=== PATIENT | female | born 1980 | race Caucasian/White ===

== ENCOUNTER 2018-07-05 15:52 | Observation (INO) | payer OTHER ==
[2018-07-05 16:20] VITALS: BP 127/63; PULSE 55
[2018-07-05 16:25] LABS: Appearance CLEAR (CLEAR); Bilirubin NEGATIVE (NEGATIVE); Blood NEGATIVE Ery/ul (0-5); Glucose NEGATIVE (NEGATIVE); Ketones NEGATIVE (NEGATIVE); Leukocyte Esterase NEGATIVE (NEGATIVE); Nitrite NEGATIVE (NEGATIVE); Protein,Urine Dip NEGATIVE (Negative); Specific Gravity 1.005 (1.005-1.025); Urobilinogen NORMAL mg/dL (0-1)
== END 2018-07-05 17:35 | disposition home or self-care (01) ==
LOC: UNDOADMOB 15:52 → OB 15:52 → UNDODISOB 17:35
PROVIDERS: ADMIT Family Medicine; ATTEND Family Medicine
DX: Z34.83 Encounter for supervision of other normal pregnancy, third trimester (principal)
CPT/HCPCS: 81002; G0378

== ENCOUNTER 2018-07-14 04:01 | Inpatient (IN) | payer OTHER ==
[2018-07-14] MEDS ORDERED: Lactated Ringers 2,000 ML IV ONE (04:25)
[2018-07-14] MEDS ORDERED: Lactated Ringers 1,000 ML IV ONE (05:19)
[2018-07-14] MEDS ORDERED: MOTRIN 400 MG PO PRN (05:20)
[2018-07-14] MEDS ORDERED: LANSINOH 40 GM TOP PRN (05:20)
[2018-07-14] MEDS ORDERED: TYLENOL EXTRA STRENGTH 500 MG PO PRN (05:20)
[2018-07-14] MEDS ORDERED: Anucort-HC SUPPOSITORY PR PRN (05:20)
[2018-07-14] MEDS ORDERED: CORTISONE 1% CREAM TP PRN (05:20)
[2018-07-14] MEDS ORDERED: Mylicon 80MG PO PRN (05:20)
[2018-07-14] MEDS ORDERED: Dermoplast Spray TP PRN (05:20)
[2018-07-14] MEDS ORDERED: Dulcolax 10 MG SUPP PR PRN (05:20)
[2018-07-14 05:26] LABS: INR 0.89 (0.8-3.0)
[2018-07-14 05:29] LABS: PTT 25.7 SECONDS (25.3-37.0)
[2018-07-14] MEDS ORDERED: Pepcid 20 MG VIAL IV SCH (05:30)
[2018-07-14] MEDS ORDERED: Reglan 10 MG/2 ML IV SCH (05:30)
[2018-07-14] MEDS ORDERED: Lactated Ringers 1,000 ML IV SCH (05:30)
[2018-07-14] MEDS ORDERED: CEFAZOLIN 2 GM-D5W BAG** 2 GM/50 ML ML IV SCH (05:30)
[2018-07-14 05:33] LABS: Hemoglobin 12.3 gm/dl (12.0-16.0); Mean Corpuscular Hemoglobin 31.6 pg (26-32); Mean Corpuscular Hgb Concent. 35.1 g/dl (32-36); Mean Platelet Volume 9.7 fl (6-9.5); Platelet Count 315 K/mm3 (150-450); Red Blood Count 3.89 M/mm3 (4.1-5.4); White Blood Count 10.9 K/mm3 (4.0-10.5)
[2018-07-14 05:39] LABS: ABO TYPING O; Antibody Screen NEGATIVE (NEGATIVE); RH TYPING POSITIVE
[2018-07-14 05:45] LABS: Appearance CLEAR (CLEAR); Bacteria FEW /HPF (NEGATIVE); Bilirubin NEGATIVE (NEGATIVE); Blood NEGATIVE Ery/ul (0-5); Epithelial Cells MODERATE /HPF (FEW); Glucose NEGATIVE (NEGATIVE); Ketones NEGATIVE (NEGATIVE); Leukocyte Esterase TRACE (NEGATIVE); Nitrite NEGATIVE (NEGATIVE); Protein,Urine Dip NEGATIVE (Negative); Urobilinogen NORMAL mg/dL (0-1)
[2018-07-14 05:58] LABS: Amphetamine,Urine NEGATIVE (NEGATIVE); Barbiturate,Urine NEGATIVE (NEGATIVE); Benzodiazepine,Urine NEGATIVE (NEGATIVE); Cocaine,Urine NEGATIVE (NEGATIVE); Methadone,Urine NEGATIVE (NEGATIVE); Opiate,Urine NEGATIVE (NEGATIVE); PCP,Urine NEGATIVE (NEGATIVE); THC,Urine POSITIVE (NEGATIVE)
[2018-07-14] MEDS ORDERED: MEDICATION INTERVENTION MC SCH (07:30)
[2018-07-14] MEDS ORDERED: DEMEROL 50 MG IV PRN (09:00)
[2018-07-14] MEDS ORDERED: MORPHINE SULFATE 2 MG INJ IV PRN (09:00)
[2018-07-14] MEDS ORDERED: Nubain 10 MG/ML IV PRN (09:00)
[2018-07-14] MEDS ORDERED: BENADRYL 50 MG/ML IV PRN (09:00)
[2018-07-14] MEDS ORDERED: Zofran 4 MG/2 ML VIAL IV PRN ×2 (09:00→10:08)
[2018-07-14] MEDS ORDERED: HOLD NARCOTIC ANALGESICS AND SEDATIVES X24 HR MC PRN (09:00)
[2018-07-14] MEDS ORDERED: Narcan 0.4 MG/ML IV PRN (09:00)
[2018-07-14] MEDS ORDERED: CLARITIN 10 MG PO PRN (09:00)
[2018-07-14] MEDS: FERREX 150 PO SCH (09:39)
[2018-07-14] MEDS: Colace 100 MG PO SCH ×2 (09:39→20:37)
[2018-07-14 10:26] LABS: Appearance CLEAR (CLEAR); Leukocyte Esterase NEGATIVE (NEGATIVE); Nitrite NEGATIVE (NEGATIVE); Specific Gravity 1.015 (1.005-1.025)
--- NOTE | 2018-07-14 10:26 | OP ---
SURGERY DATE/TIME: 07/14/2018 0718 PREOPERATIVE DIAGNOSES: 1) History of prior section. 2) Term intrauterine . POSTOPERATIVE DIAGNOSES: 1) History of prior section. 2) Term intrauterine . PROCEDURE: Repeat low transverse section. SURGEON: Adalberto Chu M.D. ORACLE PROGRAMMER: Delmy Hinton M.D. ESTIMATED BLOOD LOSS: 300 cc. IV FLUIDS: 1400 cc of crystalloid. URINE OUTPUT: 200 cc of clear straw-colored urine. ANESTHESIA: Spinal by Donal Agarwal CRNA. SPECIMENS: None. DESCRIPTION OF PROCEDURE: After informed written consent was obtained, the patient was taken to the operating room. She underwent spinal anesthesia and was prepped and draped in the usual sterile fashion. After adequate level of anesthesia assessed, a low transverse skin incision was made by knife and carried through the subcutaneous fat to the level of the fascia. The fascia was nicked on both sides of the midline extended in horizontal fashion using curved Tapia scissors. The superior free edge of the fascia was grasped with Valdemar clamps and the underlying rectus muscles were dissected free. The same was repeated inferiorly. The peritoneal cavity was opened and extended in horizontal fashion. Bladder blade was then inserted and a bladder was created and reflected over the lower uterine segment. A horizontal uterine incision was made by knife and carried down to the level of the amniotic membranes which were carefully artificially ruptured. A viable male with a strong cry immediately was delivered from the vertex presentation. He voided on the operative field. The cord was clamped and cut and he was handed off to the awaiting nursery team after the oropharynx and nares were bulb suctioned free of fluid. The placenta was manually removed and the uterus was exteriorized. The uterine cavity was sponge curetted with a lap sponge. Next, the uterine incision was closed with #1 chromic in a running locked fashion. Good closure and good hemostasis achieved. The posterior cul-de-sac was wiped free of blood and clot with a moist lap sponge. The uterus was returned to the peritoneal cavity. Lateral gutters were wiped free of blood and clot. The uterine incision was carefully inspected and noted to be well approximated and hemostatic. Next, the fascia was closed with 0 Vicryl in a running fashion with good closure and good hemostasis were achieved. The subcutaneous fat was irrigated with warm, sterile saline. The space closed with 3-0 Vicryl in a running fashion. The skin layer was closed with 4-0 undyed Vicryl in a running subcuticular fashion. Steri-Strips and occlusive dressing were placed over the incision. The patient was transferred to the recovery in good condition.
[2018-07-14 10:27] LABS: Bilirubin NEGATIVE (NEGATIVE); Blood NEGATIVE Ery/ul (0-5); Glucose NEGATIVE (NEGATIVE); Ketones MODERATE (NEGATIVE); Protein,Urine Dip NEGATIVE (Negative); Urobilinogen NORMAL mg/dL (0-1)
[2018-07-14] MEDS ORDERED: Astramorph-Pf 5 MG/10 ML IV ONE (10:45)
[2018-07-14] MEDS ORDERED: Phenergan 25 MG INJ IV PRN (10:53)
[2018-07-14] MEDS ORDERED: Transderm Scop 1.5MG Patch TOP ONE (10:54)
[2018-07-14] MEDS ORDERED: MARCAINE 0.5%-EPI 1:200,000 VL IJ ONE (12:41)
[2018-07-14] MEDS ORDERED: Ephedrine Sulfate 50 MG/ML IV ONE (12:41)
[2018-07-14] MEDS ORDERED: Marcaine Spinal Ampul IJ ONE (12:41)
[2018-07-14] MEDS ORDERED: Xylocaine-Mpf 2% 5 Ml Vial IJ ONE (12:41)
[2018-07-14] MEDS ORDERED: Zofran 4 MG/2 ML VIAL IV ONE (12:41)
[2018-07-14] MEDS ORDERED: Pitocin 10 UNITS/ML IV ONE (12:41)
[2018-07-14] MEDS: Dextrose 5%-Lr IV Solution 1000 ML 1,000 ML IV SCH ×2 (13:34→20:38)
[2018-07-15] MEDS: PERCOCET TABLET 5/325MG PO PRN ×2 (02:01→06:48)
[2018-07-15 05:30] LABS: BASOPHIL % 0.2 % (0.0-0.4); Basophil (Absolute #) 0.02 (0-0.4); Eosinophil % 0.8 % (0.00-5.0); Granulocyte Absolute (ANC) 9.42 (1.4-6.9); Granulocytes % 72.8 % (36.0-66.0); Hematocrit 30.3 % (35-47); Hemoglobin 10.3 gm/dl (12.0-16.0); Lymphocyte (Absolute #) 2.35 (1.0-4.6); Lymphocytes % 18.2 % (24.0-44.0); Mean Cell Volume 91.8 fl (78-100); Mean Corpuscular Hemoglobin 31.2 pg (26-32); Monocyte (Absolute #) 1.04 (0.0-1.3); Platelet Count 267 K/mm3 (150-450); Red Cell Distribution Width 13.1 % (11.5-14.0); White Blood Count 12.9 K/mm3 (4.0-10.5)
[2018-07-15] MEDS ORDERED: Phenergan 25 MG INJ IM PRN (09:00)
[2018-07-15] MEDS ORDERED: DEMEROL 75 MG IM PRN (09:00)
[2018-07-15] MEDS: Colace 100 MG PO SCH ×2 (11:53→19:50)
[2018-07-15] MEDS: FERREX 150 PO SCH (11:53)
[2018-07-15] MEDS: NORCO 5/325 MG PO PRN ×3 (11:53→22:20)
[2018-07-16 02:58] VITALS: O2SAT 98
[2018-07-16] MEDS: NORCO 5/325 MG PO PRN (04:20)
--- NOTE | 2018-07-16 10:17 | XRAY ---
Exam: Abdomen complete (3 images) from 07/16/2018. Comparison: None. Indication: Consider ileus. Findings: An upright film of the abdomen and 2 supine images of the abdomen were obtained. I note some focally dilated bowel just to the left of the lower lumbar spine. This measures a maximum of about 5 cm diameter. If this represents small bowel, it is definitely dilated. Distal to this, I see some nondilated small bowel loops overlying the right lower right abdomen as well as gas and stool throughout much of the colon to the distal descending colon. A small amount of gas and stool are seen within distal rectosigmoid colon. An air-fluid levels seen within the gastric fundus on the upright image. The stomach is nondistended. No free intraperitoneal air is seen underneath the hemidiaphragms. There is a round, fog-like artifactual density overlying the medial right lung base on the upright image. No hepatosplenomegaly is seen. No suspicious intra-abdominal calcifications are noted. The bones reveal a 2.1 cm in diameter sclerotic density overlying the lower aspect of the left sacroiliac joint on the iliac side. This might represent a bone island, although precise etiology is uncertain. There is also a 5 mm calcification adjacent to the superior lateral edge of the right acetabulum which may represent an accessory bone (os acetabuli). The remainder the bones appears intact. Impression: 1. Nonspecific bowel gas pattern. There is focal prominence of a bowel loop seen just above the left sacroiliac joint and to the left of midline at L4-L5. If this represents a portion of the sigmoid colon, this would be unremarkable. However, if this represents small bowel, then it is dilated. I do not see significant bowel distention proximal to this. Also, some nondilated small bowel is seen within the lower right hemiabdomen. Correlate clinically regarding the need for further investigation with a CT of the abdomen and pelvis with IV contrast. 2. Moderate colonic stool retention is seen within the cecum, ascending colon, transverse colon, and descending colon. 3. No free intraperitoneal air is seen. 4. 2.1 cm sclerotic density overlying the iliac side of the inferior portion of left sacroiliac joint. This is fairly well demarcated. This might represent a bone island.
[2018-07-16] MEDS: Colace 100 MG PO SCH (10:25)
[2018-07-16] MEDS: FERREX 150 PO SCH (10:25)
[2018-07-16] MEDS ORDERED: Astramorph-Pf 5 MG/10 ML IV ONE (10:39)
[2018-07-16 15:44] VITALS: BP 149/77; PULSE 76
--- NOTE | 2018-07-16 16:06 | PCM.DS ---
Discharge Summary Date of Admission: 07/14/18 04:01 Admitting Physician: ACOSTA SANCHEZ Consults: Consults on Case 07/14/18 05:19 Notify Anesthesia Provider ROUTINE Primary Care Provider: ACOSTA SANCHEZ Allergies Allergies ketorolac tromethamine [From Toradol] Allergy (Mild, Verified 08/14/14 08:48) [facility] Summary - Hospital Course Hospital Course: Pt is 38 yo who delivered viable male via repeat c/section. She has done well postoperatively aside from some abdominal pain and bloating this morning. She had an abd xray which was not diagnostic. She passed gas and has been feeling much better and would like to go home. - Vitals & Intake/Output Vital Signs: Vital Signs Temperature 98.7 F 07/16/18 14:00 Pulse Rate 76 07/16/18 14:00 Respiratory Rate 18 07/16/18 14:00 Blood Pressure 149/77 07/16/18 14:00 O2 Sat by Pulse Oximetry 98 07/16/18 02:00 Intake & Output: Intake & Output 07/14/18 07/15/18 07/16/18 07/17/18 11:59 11:59 11:59 11:59 Intake Total 354 4961 Output Total 1900 Balance 354 3061 Weight 102.058 kg - Lab Result Diagrams: 07/15/18 05:22 Micro Results-Entire Visit: Microbiology 07/14/18 07:32 Urine Culture - Final Urine, Catheterized NO GROWTH - Radiology Exams Ordered Rad Exams-Entire Visit: Radiology Procedures Category Date Time Status ABDOMEN 2 VIEW Stat Exams 07/16/18 09:22 Completed - Procedures and Test Procedures and Tests throughout Hospitalization: Therapy Orders & Screens 07/14/18 10:20 Standby Routine Comment: Diagnosis: Repeat Section Discharge Exam General Appearance: mild distress (cries initially during interview), other ( exam done this morning) Neurologic Exam: alert, oriented x 3, cooperative Skin Exam: normal color, warm, dry, No rash Respiratory Exam: normal breath sounds, lungs clear, No crackles/rales, No rhonchi, No wheezing Cardiovascular Exam: regular rate/rhythm, normal heart sounds, No murmur Gastrointestinal/Abdomen Exam: soft, tenderness (generalized, mild), other ( fundus firm under umbilicus. wound c/d/ i, no erythema/exudate), No normal bowel sounds (hypoactive), No distention, No mass, No guarding, No rebound Extremity Exam: No pedal edema, No swelling Back Exam: normal inspection, No rash Final Diagnosis/Problem List - Final Discharge Diagnosis/Problem (1) delivery delivered Current Visit: Yes Status: Acute Assessment & Plan: doing well. home today. (2) Anemia Current Visit: Yes Status: Acute Assessment & Plan: mild; heg 10.3. on Fe for 1 mo. - Discharge Disposition: Home, Self-Care Condition: Good Prescriptions: New Docusate Sodium [Colace] 100 mg PO BID PRN #60 capsule PRN Reason: Constipation Ferrous Sulfate 325 mg [Feosol 325 mg] 325 mg PO DAILY #30 tablet Ibuprofen 800 mg PO TID PRN #35 tablet PRN Reason: Pain Hydrocodone Bit/Acetaminophen [[place] 5-325 Tablet] 1 each PO Q4H PRN #30 tablet MDD 6 PRN Reason: Severe Pain Continue Vits W-Ca,Fe,FA(<1Mg) [] 1 each PO LUNCH Follow up with: ACOSTA SANCHEZ [Primary Care Provider] - 1 Week
== END 2018-07-16 16:45 | disposition home or self-care (01) | DRG 766 ==
LOC: OB 04:01
PROVIDERS: ADMIT Family Medicine; ATTEND Family Medicine
PROC: 10D00Z1 Extraction of Products of Conception, Low, Open Approach (ICD-10-PCS; principal; 2018-07-14)
DX: O34.211 Maternal care for low transverse scar from previous cesarean delivery (principal); Z37.0 Single live birth; Z3A.39 39 weeks gestation of pregnancy; D64.9 Anemia, unspecified
CPT/HCPCS: 36415; 62322; 64488; 74021; 76937; 76942; 80307; 81001; 81003; 85025; 85027; 85610; 85730; 86850; 86900; 86901; 87086; 94799; J0690; J2274; J2405; J2550; J2590; L0625; A9270-GY

== ENCOUNTER 2019-12-27 07:37 | Day surgery (SDC) | payer OTHER ==
[~2019-12-27 07:37] MED LIST: CEFAZOLIN 2 GM-D5W BAG** 2 GM/50 ML ML IV SCH; Lactated Ringers 1,000 ML IV SCH
[2019-12-27] MEDS ORDERED: Decadron 4 MG INJ ONE (09:50)
[2019-12-27] MEDS ORDERED: SUBLIMAZE 100 MCG/2 ML ONE ×2 (09:50→10:05)
[2019-12-27] MEDS ORDERED: Zofran 4 MG/2 ML VIAL ONE (09:50)
[2019-12-27] MEDS ORDERED: Versed 2 MG/2 ML Injection ONE (09:50)
[2019-12-27] MEDS ORDERED: DIPRIVAN 200 MG/20 ML IV ONE (09:50)
[2019-12-27] MEDS ORDERED: Xylocaine-Mpf 2% 5 Ml Vial ONE (09:51)
[2019-12-27 11:54] VITALS: O2SAT 100
[2019-12-27 11:56] VITALS: BP 143/98; PULSE 74
--- NOTE | 2019-12-28 08:37 | OP ---
SURGERY DATE/TIME: 12/27/2019 0958 PREOPERATIVE DIAGNOSIS: Menorrhagia. POSTOPERATIVE DIAGNOSIS: Menorrhagia. PROCEDURE: Hysteroscopy D&C with Novasure ablation. SURGEON: Lawrence Alba D.O. RUBBER FACTORY WORKER: Yves Martinez surgical manager. ANESTHESIA: General. ESTIMATED BLOOD LOSS: Minimal. COMPLICATIONS: None. INDICATIONS: The risks, benefits, indications and alternatives of the procedure were reviewed with the patient prior to the procedure. The patient understood the risk of infection, bleeding, bowel injury, bladder injury, ureteral injury, uterine perforation, pelvic infection, thromboembolic disorder associated with the surgery however desires to have this surgery as a possible need to alleviate her current medical condition. DESCRIPTION OF PROCEDURE AND FINDINGS: At this point the patient is taken to the operating room, given general sedation, placed in dorsal lithotomy position. Prepped and draped in the usual sterile fashion. A weighted speculum is then placed in the patient's vagina and the anterior lip of the cervix is grasped with a single tooth tenaculum. Endocervical dilators were advanced through the endocervical canal as a means to dilate the cervix and the uterus sounded to approximately 9 cm. From this point a 5 mm hysteroscope was then placed into the endocervical canal where visualization revealed no gross abnormalities within the uterine lining. From this point the hysteroscope was then removed and the curette was then placed into the fundus of the uterus and curettage performed in all quadrants of the uterus retrieving a mild to moderate amount of endometrial tissue. From this point hemostasis is obtained. From this point the Novasure was then measured at 6.0 cm in length and was inserted into the fundus of the uterus, retracted approximately 1 cm and was engaged with a width of 4 cm. After engagement the machine was turned on for approximately 90 seconds of ablative time. After ablation the Novasure was then disengaged and was removed from the uterine cavity without complication. From this point, the patient was then taken out of the dorsal lithotomy position, was taken out of anesthesia and was then taken to the recovery room in stable condition. All instruments and laps were accounted for x2.
== END 2019-12-27 11:50 | disposition home or self-care (01) ==
LOC: SDC 07:37
PROVIDERS: ATTEND Obstetrics & Gynecology
DX: N92.0 Excessive and frequent menstruation with regular cycle (principal)
CPT/HCPCS: 84703; 88305; J0690; J1100; J2250; J2405; J2704; J3010

== ENCOUNTER 2020-06-15 00:06 | Emergency (ER) | payer OTHER ==
[2020-06-15 00:39] LABS: Absolute Neutrophil Ct (ANC) 4.69 (1.4-6.9); BASOPHIL % 0.6 % (0.0-0.4); Basophil (Absolute #) 0.05 (0-0.4); Eosinophil % 3.8 % (0.00-5.0); Eosinophil (Absolute #) 0.34 (0-0.5); Hematocrit 42.4 % (35-47); Hemoglobin 14.6 gm/dl (12.0-16.0); Lymphocyte (Absolute #) 3.02 (1.0-4.6); Mean Cell Volume 89.3 fl (78-100); Mean Corpuscular Hemoglobin 30.7 pg (26-32); Mean Corpuscular Hgb Concent. 34.4 g/dl (32-36); Monocyte (Absolute #) 0.78 (0.0-1.3); Monocytes % 8.8 % (0.0-12.0); Neutrophil % 52.8 % (36.0-66.0); Platelet Count 285 K/mm3 (150-450); Red Blood Count 4.75 M/mm3 (4.1-5.4); Red Cell Distribution Width 12.6 % (11.5-14.0); White Blood Count 8.9 K/mm3 (4.0-10.5)
--- NOTE | 2020-06-15 00:59 | ERPHSYRPT ---
- History of Present Illness Time Seen by Provider: 06/15/20 00:15 Historian: patient Exam Limitations: no limitations Patient Subjective Stated Complaint: "I have pain in my chest and it hurts so bad that I can't breath." Triage Nursing Assessment: Pt presented alert et oriented x3 answering questions appropriately. Pt reported acute onset chest pain that radiates to her lower back. Pt reported shortness of breath secondary to the pain. Pt also reported nausea and vomiting. Pt reported symptom original onset in november. pt reported symptoms occur multiple times per month and always at night. Pt reported symptoms are constant after they begin. Pain described as sharp and radiating to the back. Pain reported to alleviate following vomiting. No aggrevating factors. Pt reported severity as severe. Pupils 3mm reactive. Neck supple non-tender. Oral mucosa pink/moist. Symmetrical chest expansion. Heart tones regular/clear S1 and S2. Lungs clear witha adequate airflow. Abdomen obese non-distended non- tender. Bowel sounds present in all quadrants. No noted dependent edema. Physician History: Patient is a 40-year-old female presents to our ED with complaints of chest pain shortness of breath nausea vomiting. Patient has been experiencing these symptoms intermittently for the past 6 months. Symptoms usually occur at night. Pain described as a sharp sensation that tends to radiate towards her back. Patient states vomiting improves her symptoms. Symptoms are to severe in intensity when they occur. Patient believes lying flat causes her symptomology. Pain tends to improve after vomiting. No fever. No trauma. No abdominal pain. Patient is otherwise healthy. She voices no other complaints concerns at this time. Timing/Duration: today Activities at Onset: sleep Quality: sharpness Location: substernal Chest Pain Radiation: back Severity of Pain-Max: severe Severity of Pain-Current: moderate Modifying Factors: Improves With: other (vomiting) Associated Symptoms: nausea, vomiting, shortness of breath, back pain Nitro Today/Relief: no nitro taken today Aspirin Treatment Today: no aspirin today Allergies/Adverse Reactions: ketorolac tromethamine [From Toradol] Allergy (Mild, Verified 06/15/20 00:20) dizziness Home Medications: Cholecalciferol (Vitamin D3) [Vitamin D3] 2,000 unit PO DAILY 12/27/19 [History] Cetirizine HCl 1 tab PO DAILY 06/15/20 [History] Tacrolimus 1 dose .ROUTE DAILY 06/15/20 [History] Hx Tetanus, Diphtheria Vaccination/Date Given: No Hx Influenza Vaccination/Date Given: No Hx Pneumococcal Vaccination/Date Given: No Travel Risk - International Travel Have you traveled outside of the country in past 3 weeks: No - Coronavirus Screening Are you exhibiting any of the following symptoms?: No Close contact with a COVID-19 positive Pt in past 14-21 Days: No - Review of Systems Constitutional: No Symptoms, No Fever, No Chills Eyes: No Symptoms Ears, Nose, & Throat: No Symptoms Respiratory: No Symptoms, No Cough, No Dyspnea Cardiac: No Symptoms, No Chest Pain, No Edema, No Syncope Abdominal/Gastrointestinal: No Symptoms, No Abdominal Pain, No Nausea, No Vomiti ng, No Diarrhea Genitourinary Symptoms: No Symptoms, No Dysuria Musculoskeletal: No Symptoms, No Back Pain, No Neck Pain Skin: No Symptoms, No Rash Neurological: No Symptoms, No Dizziness, No Focal Weakness, No Sensory Changes Psychological: No Symptoms Endocrine: No Symptoms Hematologic/Lymphatic: No Symptoms Immunological/Allergic: No Symptoms All Other Systems: Reviewed and Negative - Past Medical History Pertinent Past Medical History: No Neurological History: No Pertinent History ENT History: No Pertinent History Cardiac History: No Pertinent History Respiratory History: Asthma Endocrine Medical History: No Pertinent History Musculoskeletal History: No Pertinent History GI Medical History: No Pertinent History History: No Pertinent History Psycho-Social History: No Pertinent History Female Reproductive Disorders: No Pertinent History - Past Surgical History Past Surgical History: Yes Neuro Surgical History: No Pertinent History Cardiac: No Pertinent History Respiratory: No Pertinent History Gastrointestinal: No Pertinent History Genitourinary: No Pertinent History Musculoskeletal: Orthopedic Surgery Female Surgical History: Section Other Surgical History: CARPAL TUNNEL right hand - Social History Smoking Status: Former smoker How long have you smoked: 5 yrs Exposure to second hand smoke: Yes Drug Use: marijuana Patient Lives Alone: No - Female History Hx Now: No - Nursing Vital Signs Nursing Vital Signs: Initial Vital Signs Temperature 96.3 F 06/15/20 00:07 Pulse Rate 98 H 06/15/20 00:07 Respiratory Rate 18 06/15/20 00:07 Blood Pressure 144/100 06/15/20 00:07 O2 Sat by Pulse Oximetry 97 06/15/20 00:07 Pain Scale Pain Intensity 2 - Physical Exam General Appearance: no apparent distress, alert Eye Exam: PERRL/EOMI, eyes nml inspection Ears, Nose, Throat Exam: normal ENT inspection, TMs normal, moist mucous membranes Neck Exam: normal inspection, non-tender, supple, full range of motion Respiratory Exam: normal breath sounds, lungs clear, airway intact, No chest tenderness, No respiratory distress, No diminished breath sounds, No accessory muscle use, No crackles/rales, No wheezing Cardiovascular Exam: regular rate/rhythm, normal heart sounds Gastrointestinal/Abdomen Exam: soft, No tenderness, No mass Back Exam: normal inspection, No CVA tenderness, No vertebral tenderness Extremity Exam: normal inspection, normal range of motion Neurologic Exam: alert, oriented x 3, cooperative, normal mood/affect, sensation nml, No motor deficits Skin Exam: normal color, warm, dry Lymphatic Exam: No adenopathy SpO2 Interpretation: normal SpO2: 97 O2 Delivery: Room Air - Course Nursing assessment & vital signs reviewed: Yes EKG Interpreted by Me: RATE (94), Sinus Rhythm, NORMAL AXIS, NORMAL INTERVALS - Radiology Exams Chest X-ray Interpretation: Interpreted by me (No infiltrate no consolidation no effusion. Normal cardiac silhouette. Normal bony thorax. No pneumothorax. Nonremarkable chest x-ray.) Ordered Tests: Active Orders 24 hr Category Date Time Status Road Freight Conductor STAT Care 06/15/20 00:17 Active EKG-ER Only STAT Care 06/15/20 00:17 Active IV Insertion STAT Care 06/15/20 00:17 Active Pulse Oximetry (ED) STAT Care 06/15/20 00:17 Active CHEST 1 VIEW (PORTABLE) Stat Exams 06/15/20 00:17 Taken CBC W DIFF Stat Lab 06/15/20 00:36 Completed CMP Stat Lab 06/15/20 00:36 Completed D-DIMER QUANTITATIVE Stat Lab 06/15/20 00:36 Completed HCG,QUALITATIVE URINE Stat Lab 06/15/20 01:54 Completed NT PRO BNP Stat Lab 06/15/20 00:36 Completed TROPONIN Q3H Lab 06/15/20 00:36 Completed TROPONIN Q3H Lab 06/15/20 02:28 Completed TROPONIN Q3H Lab 06/15/20 06:30 Ordered TROPONIN Q3H Lab 06/15/20 09:30 Ordered TROPONIN Q3H Lab 06/15/20 12:30 Ordered UA W/RFX UR CULTURE Stat Lab 06/15/20 01:54 Completed Urine Triage Profile Stat Lab 06/15/20 01:54 Completed Lab/Rad Data: Laboratory Result Diagrams 06/15/20 00:36 06/15/20 00:36 Laboratory Results 06/15/20 06/15/20 06/15/20 Range/Units 02:28 01:54 01:54 WBC (4.0-10.5) K/mm3 RBC (4.1-5.4) M/mm3 Hgb (12.0-16.0) gm/dl Hct (35-47) % MCV (78-100) fl MCH (26-32) pg MCHC (32-36) g/dl RDW (11.5-14.0) % Plt Count (150-450) K/mm3 MPV (7.5-11.0) fl Gran % (36.0-66.0) % Eos # (Auto) (0-0.5) Absolute Lymphs (auto) (1.0-4.6) Absolute Monos (auto) (0.0-1.3) Lymphocytes % (24.0-44.0) % Monocytes % (0.0-12.0) % Eosinophils % (0.00-5.0) % Basophils % (0.0-0.4) % Absolute Granulocytes (1.4-6.9) Basophils # (0-0.4) D-Dimer (215-500) ng/mL Sodium (137-145) mmol/L Potassium (3.5-5.1) mmol/L Chloride (98-107) mmol/L Carbon Dioxide (22-30) mmol/L Anion Gap (5-15) MEQ/L BUN (7-17) mg/dL Creatinine (0.52-1.04) mg/dL Estimated GFR ML/MIN Glucose (74-106) mg/dL Calcium (8.4-10.2) mg/dL Total Bilirubin (0.2-1.3) mg/dL AST (14-36) U/L ALT (0-35) U/L Alkaline Phosphatase (38-126) U/L Troponin I < 0.012 (0.000-0.034) ng/mL NT-Pro-B Natriuret Pep (0-450) pg/mL Serum Total Protein (6.3-8.2) g/dL Albumin (3.5-5.0) g/dL Urine Color (YELLOW) Urine Appearance (CLEAR) Urine pH (5-6) Ur Specific Zap (1.005-1.025) Urine Protein (Negative) Urine Ketones (NEGATIVE) Urine Blood (0-5) Hayes/ul Urine Nitrite (NEGATIVE) Urine Bilirubin (NEGATIVE) Urine Urobilinogen (0-1) mg/dL Ur Leukocyte Esterase (NEGATIVE) Urine WBC (Auto) (0-5) /HPF Urine RBC (Auto) (0-2) /HPF U Epithel Cells (Auto) (FEW) /HPF Urine Bacteria (Auto) (NEGATIVE) /HPF Amorphous Crystals (NEGATIVE) /HPF Urine Mucus (Auto) (NEGATIVE) /HPF Urine Culture Reflexed (NO) Urine Glucose (NEGATIVE) mg/dL Urine HCG, Qual NEGATIVE (Negative) Urine Opiates Level NEGATIVE (NEGATIVE) Ur Methadone NEGATIVE (NEGATIVE) Urine Barbiturates NEGATIVE (NEGATIVE) Ur Phencyclidine (PCP) NEGATIVE (NEGATIVE) Urine Amphetamine NEGATIVE (NEGATIVE) U Benzodiazepine Level NEGATIVE (NEGATIVE) Urine Cocaine NEGATIVE (NEGATIVE) Urine Marijuana (THC) POSITIVE (NEGATIVE) 06/15/20 06/15/20 06/15/20 Range/Units 01:54 00:36 00:36 WBC (4.0-10.5) K/mm3 RBC (4.1-5.4) M/mm3 Hgb (12.0-16.0) gm/dl Hct (35-47) % MCV (78-100) fl MCH (26-32) pg MCHC (32-36) g/dl RDW (11.5-14.0) % Plt Count (150-450) K/mm3 MPV (7.5-11.0) fl Gran % (36.0-66.0) % Eos # (Auto) (0-0.5) Absolute Lymphs (auto) (1.0-4.6) Absolute Monos (auto) (0.0-1.3) Lymphocytes % (24.0-44.0) % Monocytes % (0.0-12.0) % Eosinophils % (0.00-5.0) % Basophils % (0.0-0.4) % Absolute Granulocytes (1.4-6.9) Basophils # (0-0.4) D-Dimer 279 (215-500) ng/mL Sodium (137-145) mmol/L Potassium (3.5-5.1) mmol/L Chloride (98-107) mmol/L Carbon Dioxide (22-30) mmol/L Anion Gap (5-15) MEQ/L BUN (7-17) mg/dL Creatinine (0.52-1.04) mg/dL Estimated GFR ML/MIN Glucose (74-106) mg/dL Calcium (8.4-10.2) mg/dL Total Bilirubin (0.2-1.3) mg/dL AST (14-36) U/L ALT (0-35) U/L Alkaline Phosphatase (38-126) U/L Troponin I < 0.012 (0.000-0.034) ng/mL NT-Pro-B Natriuret Pep (0-450) pg/mL Serum Total Protein (6.3-8.2) g/dL Albumin (3.5-5.0) g/dL Urine Color YELLOW (YELLOW) Urine Appearance SLIGHTLY CLOUDY (CLEAR) Urine pH 7.0 (5-6) Ur Specific Zap 1.018 (1.005-1.025) Urine Protein NEGATIVE (Negative) Urine Ketones NEGATIVE (NEGATIVE) Urine Blood NEGATIVE (0-5) Hayes/ul Urine Nitrite NEGATIVE (NEGATIVE) Urine Bilirubin NEGATIVE (NEGATIVE) Urine Urobilinogen NEGATIVE (0-1) mg/dL Ur Leukocyte Esterase NEGATIVE (NEGATIVE) Urine WBC (Auto) NONE (0-5) /HPF Urine RBC (Auto) 0-2 (0-2) /HPF U Epithel Cells (Auto) RARE (FEW) /HPF Urine Bacteria (Auto) NONE (NEGATIVE) /HPF Amorphous Crystals FEW (NEGATIVE) /HPF Urine Mucus (Auto) SLIGHT (NEGATIVE) /HPF Urine Culture Reflexed NO (NO) Urine Glucose NEGATIVE (NEGATIVE) mg/dL Urine HCG, Qual (Negative) Urine Opiates Level (NEGATIVE) Ur Methadone (NEGATIVE) Urine Barbiturates (NEGATIVE) Ur Phencyclidine (PCP) (NEGATIVE) Urine Amphetamine (NEGATIVE) U Benzodiazepine Level (NEGATIVE) Urine Cocaine (NEGATIVE) Urine Marijuana (THC) (NEGATIVE) 06/15/20 06/15/20 Range/Units 00:36 00:36 WBC 8.9 (4.0-10.5) K/mm3 RBC 4.75 (4.1-5.4) M/mm3 Hgb 14.6 (12.0-16.0) gm/dl Hct 42.4 (35-47) % MCV 89.3 (78-100) fl MCH 30.7 (26-32) pg MCHC 34.4 (32-36) g/dl RDW 12.6 (11.5-14.0) % Plt Count 285 (150-450) K/mm3 MPV 9.0 (7.5-11.0) fl Gran % 52.8 (36.0-66.0) % Eos # (Auto) 0.34 (0-0.5) Absolute Lymphs (auto) 3.02 (1.0-4.6) Absolute Monos (auto) 0.78 (0.0-1.3) Lymphocytes % 34.0 (24.0-44.0) % Monocytes % 8.8 (0.0-12.0) % Eosinophils % 3.8 (0.00-5.0) % Basophils % 0.6 (0.0-0.4) % Absolute Granulocytes 4.69 (1.4-6.9) Basophils # 0.05 (0-0.4) D-Dimer (215-500) ng/mL Sodium 137 (137-145) mmol/L Potassium 3.6 (3.5-5.1) mmol/L Chloride 103 (98-107) mmol/L Carbon Dioxide 25 (22-30) mmol/L Anion Gap 12.6 (5-15) MEQ/L BUN 15 (7-17) mg/dL Creatinine 0.87 (0.52-1.04) mg/dL Estimated GFR > 60.0 ML/MIN Glucose 123 H (74-106) mg/dL Calcium 9.9 (8.4-10.2) mg/dL Total Bilirubin 0.40 (0.2-1.3) mg/dL AST 32 (14-36) U/L ALT 39 H (0-35) U/L Alkaline Phosphatase 79 (38-126) U/L Troponin I (0.000-0.034) ng/mL NT-Pro-B Natriuret Pep 29.8 (0-450) pg/mL Serum Total Protein 7.6 (6.3-8.2) g/dL Albumin 4.6 (3.5-5.0) g/dL Urine Color (YELLOW) Urine Appearance (CLEAR) Urine pH (5-6) Ur Specific Zap (1.005-1.025) Urine Protein (Negative) Urine Ketones (NEGATIVE) Urine Blood (0-5) Hayes/ul Urine Nitrite (NEGATIVE) Urine Bilirubin (NEGATIVE) Urine Urobilinogen (0-1) mg/dL Ur Leukocyte Esterase (NEGATIVE) Urine WBC (Auto) (0-5) /HPF Urine RBC (Auto) (0-2) /HPF U Epithel Cells (Auto) (FEW) /HPF Urine Bacteria (Auto) (NEGATIVE) /HPF Amorphous Crystals (NEGATIVE) /HPF Urine Mucus (Auto) (NEGATIVE) /HPF Urine Culture Reflexed (NO) Urine Glucose (NEGATIVE) mg/dL Urine HCG, Qual (Negative) Urine Opiates Level (NEGATIVE) Ur Methadone (NEGATIVE) Urine Barbiturates (NEGATIVE) Ur Phencyclidine (PCP) (NEGATIVE) Urine Amphetamine (NEGATIVE) U Benzodiazepine Level (NEGATIVE) Urine Cocaine (NEGATIVE) Urine Marijuana (THC) (NEGATIVE) - Progress Progress: improved Air Movement: good Progress Note: 06/15/20 03:03 Patient reassessed. She is well. Patient is pain-free. Work-up essentially negative. In light of the pattern of patient's pain it appears that patient's pain may be stemming from GERD. Patient advised to follow-up with her primary care physician possible referral to GI for further evaluation and treatment. Patient voiced no other complaints at this time. She agrees to follow-up with her primary care doctor within 48 hours for reevaluation. Blood Culture(s) Obtained: No Antibiotics given: No Counseled pt/family regarding: lab results, diagnosis, need for follow-up, rad results - Departure Departure Disposition: Home Clinical Impression: Chest pain, GERD (gastroesophageal reflux disease) Condition: Stable Critical Care Time: No Referrals: ACOSTA SANCHEZ [Primary Care Provider] - Additional Instructions: Discharge/Care Plan GUS NAVARROHER ECHEVARRIA was seen on 06/15/20 in the Emergency Room. The patient was counseled regarding Diagnosis,Lab results, Imaging studies, need for follow up and when to return to the Emergency Room. Prescriptions given: Discharge Note I have spoken with the patient and/or caregivers. I have explained the patient's condition, diagnosis and treatment plan based on the information available to me at this time. I have answered the patient's and/or caregiver's questions and addressed any concerns. The patient and/or caregivers have as good understanding of the patient's diagnosis, condition and treatment plan as can be expected at this point. The vital signs have been stable. The patient's condition is stable and appropriate for discharge from the emergency department. The patient will pursue further outpatient evaluation with the primary care physician or other designated or consulting physician as outlined in the discharge instructions. The patient and/or caregivers are agreeable to this plan of care and follow-up instructions have been explained in detail. The patient and/or caregivers have received these instruction. The patient/and or caregivers are aware that any significant change in condition or worsening of symptoms should prompt an immediate return to this or the closest emergency department or call 911.
[2020-06-15 01:01] LABS: ALBUMIN 4.6 g/dL (3.5-5.0); ALKALINE PHOSPHATASE 79 U/L (38-126); ANION GAP 12.6 MEQ/L (5-15); BLOOD UREA NITROGEN 15 mg/dL (7-17); CHLORIDE 103 mmol/L (98-107); Calcium 9.9 mg/dL (8.4-10.2); Carbon Dioxide 25 mmol/L (22-30); Creatinine 1 0.87 mg/dL (0.52-1.04); EST GLOMERULAR FILTRATION RATE > 60.0 ML/MIN; Glucose 123 mg/dL (74-106); NT PRO BNP 29.8 pg/mL (0-450); Potassium 3.6 mmol/L (3.5-5.1); SGOT/AST 32 U/L (14-36); SGPT/ALT 39 U/L (0-35); SODIUM 137 mmol/L (137-145); Total Protein 7.6 g/dL (6.3-8.2)
[2020-06-15 01:59] LABS: Amourphous Crystal FEW /HPF (NEGATIVE); Appearance SLIGHTLY CLOUDY (CLEAR); Bilirubin NEGATIVE (NEGATIVE); Blood NEGATIVE Ery/ul (0-5); Epithelial Cells RARE /HPF (FEW); Glucose NEGATIVE (NEGATIVE); Ketones NEGATIVE (NEGATIVE); Leukocyte Esterase NEGATIVE (NEGATIVE); Mucus SLIGHT /HPF (NEGATIVE); Nitrite NEGATIVE (NEGATIVE); Protein,Urine Dip NEGATIVE (Negative); RBC 0-2 /HPF (0-2); Specific Gravity 1.018 (1.005-1.025); Urobilinogen NEGATIVE mg/dL (0-1)
[2020-06-15 02:04] VITALS: O2SAT 97
[2020-06-15 02:12] LABS: Amphetamine,Urine NEGATIVE (NEGATIVE); Barbiturate,Urine NEGATIVE (NEGATIVE); Benzodiazepine,Urine NEGATIVE (NEGATIVE); Cocaine,Urine NEGATIVE (NEGATIVE); Methadone,Urine NEGATIVE (NEGATIVE); Opiate,Urine NEGATIVE (NEGATIVE); PCP,Urine NEGATIVE (NEGATIVE); THC,Urine POSITIVE (NEGATIVE)
[2020-06-15 03:16] VITALS: BP 125/71; PULSE 73
--- NOTE | 2020-06-15 09:40 | XRAY ---
Indication: Chest pain and vomiting. Comparison: None Portable chest demonstrates normal heart, lungs, and bony thorax with a few incidental right lung calcified granulomas.
== END 2020-06-15 03:16 | disposition home or self-care (01) ==
LOC: ED 00:06
DX: R07.9 Chest pain, unspecified (principal)
CPT/HCPCS: 36000; 36415; 71045; 80053; 80307; 81001; 83880; 84484; 84703; 85025; 85379; 93005; 93041; 94760; 99284

== ENCOUNTER 2020-07-12 18:14 | Emergency (ER) | payer OTHER ==
[2020-07-12] MEDS ORDERED: Augmentin 875-125 Tablet PO ONE (18:51)
[2020-07-12] MEDS ORDERED: ANTIVERT 25 MG PO ONE (18:51)
[2020-07-12] MEDS ORDERED: Augmentin 875-125 Tablet ONE (18:55)
[2020-07-12] MEDS ORDERED: ANTIVERT 25 MG ONE (18:55)
--- NOTE | 2020-07-12 20:09 | ERPHSYRPT ---
- History of Present Illness Time Seen by Provider: 07/12/20 18:22 Source: patient Exam Limitations: no limitations Patient Subjective Stated Complaint: pt took a hot bath a couple of days ago and placed her head in the hot water and ever since she has been having issues, she went to see Dr. Humphreys's [employer] and she said that she had water in her right ear and placed her on methylprednisolone and she is on day 3 of the pack, today her ear is having loud screeching sounds with extreme pain and it is causing her to vomit Triage Nursing Assessment: Pt was brought to the ER by her , hypertensive, rates right ear pain as 7/10, pulses normal, vomiting, vertigo, skin n/w/d Physician History: Patient is a 40-year-old female presents to our ED with complaints of dizziness nausea and right ear pain. Hearing loss patient was seen at [facility] and was started on methylprednisolone. Patient began to feel sick so she called her pharmacist to advise her to stop the methylprednisolone. Today would be day 3. Patient occasionally hears a swishing sound in her ear. No fever. Patient does not have any URI symptomology. Symptoms are mild to moderate in intensity. Moving her head from side to side reproduces her symptoms. Symptoms essentially resolved while she lays flat. Patient voices no other complaints or concerns at this time. Timing/Duration: gradual onset Severity: moderate ENT Location: ear (R) Prearrival Treatment: no prearrival treatment Modifying Factors: Improves With: other (Moving head briskly from side to side reproduces symptoms.) Associated Symptoms: dizziness, No ear drainage, No hearing loss, No nasal congestion/drainage, No epistaxis Allergies/Adverse Reactions: ketorolac tromethamine [From Toradol] Allergy (Mild, Verified 07/12/20 18:32) dizziness Home Medications: Cholecalciferol (Vitamin D3) [Vitamin D3] 2,000 unit PO DAILY 12/27/19 [History] Cetirizine HCl 1 tab PO DAILY 06/15/20 [History] Tacrolimus 1 dose .ROUTE DAILY 06/15/20 [History] Omeprazole 40 mg PO DAILY 07/12/20 [History] Hx Tetanus, Diphtheria Vaccination/Date Given: No Hx Influenza Vaccination/Date Given: No Hx Pneumococcal Vaccination/Date Given: No Travel Risk - International Travel Have you traveled outside of the country in past 3 weeks: No - Coronavirus Screening Are you exhibiting any of the following symptoms?: No Close contact with a COVID-19 positive Pt in past 14-21 Days: No - Review of Systems Constitutional: No Symptoms, No Fever, No Chills Eyes: No Symptoms Ears, Nose, & Throat: No Symptoms Respiratory: No Symptoms, No Cough, No Dyspnea Cardiac: No Symptoms, No Chest Pain, No Edema, No Syncope Abdominal/Gastrointestinal: No Symptoms, No Abdominal Pain, No Nausea, No Vomiting, No Diarrhea Genitourinary Symptoms: No Symptoms, No Dysuria Musculoskeletal: No Symptoms, No Back Pain, No Neck Pain Skin: No Symptoms, No Rash Neurological: No Symptoms, Dizziness, No Focal Weakness, No Headache, No Sensory Changes Psychological: No Symptoms Endocrine: No Symptoms Hematologic/Lymphatic: No Symptoms Immunological/Allergic: No Symptoms All Other Systems: Reviewed and Negative - Past Medical History Pertinent Past Medical History: Yes Neurological History: No Pertinent History ENT History: No Pertinent History Cardiac History: No Pertinent History Respiratory History: Asthma Endocrine Medical History: No Pertinent History Musculoskeletal History: No Pertinent History GI Medical History: No Pertinent History History: No Pertinent History Psycho-Social History: No Pertinent History Female Reproductive Disorders: No Pertinent History - Past Surgical History Past Surgical History: Yes Neuro Surgical History: No Pertinent History Cardiac: No Pertinent History Respiratory: No Pertinent History Gastrointestinal: No Pertinent History Genitourinary: No Pertinent History Musculoskeletal: Orthopedic Surgery Female Surgical History: Section Other Surgical History: CARPAL TUNNEL right hand, ablation - Social History Smoking Status: Former smoker How long have you smoked: 5 yrs Exposure to second hand smoke: Yes Drug Use: marijuana Patient Lives Alone: No - Female History Hx Now: No (ablation) - Nursing Vital Signs Nursing Vital Signs: Initial Vital Signs Temperature 97.5 F 07/12/20 18:22 Pulse Rate 61 07/12/20 18:22 Blood Pressure 165/112 07/12/20 18:22 O2 Sat by Pulse Oximetry 99 07/12/20 18:22 Pain Scale Pain Intensity 7 - Physical Exam General Appearance: no apparent distress, alert Eye Exam: bilateral eye: normal inspection, PERRL, EOMI Ear Exam: bilateral ear: auricle normal, canal normal, TM normal Nasal Exam: normal inspection Throat Exam: pharynx normal, moist mucus membranes, No tonsillar exudate Neck Exam: normal inspection, non-tender, supple, full range of motion, trachea midline Cardiovascular/Respiratory Exam: chest non-tender, normal breath sounds, regular rate/rhythm Abdominal Exam: non-tender, soft Neurologic Exam: alert, oriented x 3, sensation nml, other (Positive Tan- Hallpike. Positive head impulse test.), No motor deficits Skin Exam: normal color, warm, dry SpO2 Interpretation: normal SpO2: 98 O2 Delivery: Room Air - Course Nursing assessment & vital signs reviewed: Yes Ordered Tests: Medication Summary Discontinued Medications Generic Name Dose Route Start Last Admin Trade Name Christy PRN Reason Stop Dose Admin Amoxicillin/Clavulanate Potassium 875 mg 07/12/20 18:51 07/12/20 18:56 Augmentin 875-125 Tablet PO 07/12/20 18:52 875 mg STAT ONE Administration Amoxicillin/Clavulanate Potassium Confirm 07/12/20 18:55 Augmentin 875-125 Tablet Administered 07/12/20 18:56 Dose 875 mg .ROUTE .STK-MED ONE Meclizine HCl 25 mg 07/12/20 18:51 07/12/20 18:56 Antivert 25 Mg PO 07/12/20 18:52 25 mg STAT ONE Administration Meclizine HCl Confirm 07/12/20 18:55 Antivert 25 Mg Administered 07/12/20 18:56 Dose 25 mg .ROUTE .STK-MED ONE - Progress Progress: improved Progress Note: Head impulse test positive. Consistent with peripheral vertigo possibly vestibular neuritis. Patient received meclizine which significantly improved her dizziness. Remainder of neuro exam within normal limits. Patient feels she is ready for discharge. Patient will schedule appointment with her ENT physician. Patient requesting discharge. Patient agrees to follow-up with her primary care doctor/ENT within 48 hours for reevaluation. 07/12/20 20:12 07/12/20 20:13 07/12/20 20:15 Counseled pt/family regarding: diagnosis, need for follow-up - Departure Departure Disposition: Home Clinical Impression: Vestibular neuritis, Peripheral vertigo, Nausea and vomiting Condition: Stable Critical Care Time: No Referrals: ACOSTA KOLB [Primary Care Provider] - Additional Instructions: Discharge/Care Plan EDWIN NAVARRO was seen on 07/12/20 in the Emergency Room. The patient was counseled regarding Diagnosis,Lab results, Imaging studies, need for follow up and when to return to the Emergency Room. Prescriptions given: Discharge Note I have spoken with the patient and/or caregivers. I have explained the patient's condition, diagnosis and treatment plan based on the information available to me at this time. I have answered the patient's and/or caregiver's questions and addressed any concerns. The patient and/or caregivers have as good understanding of the patient's diagnosis, condition and treatment plan as can be expected at this point. The vital signs have been stable. The patient's condition is stable and appropriate for discharge from the emergency department. The patient will pursue further outpatient evaluation with the primary care physician or other designated or consulting physician as outlined in the discharge instructions. The patient and/or caregivers are agreeable to this plan of care and follow-up instructions have been explained in detail. The patient and/or caregivers have received these instruction. The patient/and or caregivers are aware that any significant change in condition or worsening of symptoms should prompt an immediate return to this or the closest emergency department or call 911. Prescriptions: Ondansetron ODT 4 MG [Zofran Odt 4 mg] 4 mg PO Q6H PRN PRN 3 Days #12 tab.rapdis PRN Reason: Vomiting Meclizine HCl 25 mg [Antivert 25 mg] 25 mg PO BID 5 Days #10 tablet
[2020-07-12 21:02] VITALS: BP 152/104; PULSE 66; O2SAT 100
== END 2020-07-12 21:07 | disposition home or self-care (01) ==
LOC: ED 18:14
DX: H81.20 Vestibular neuronitis, unspecified ear (principal); H81.399 Other peripheral vertigo, unspecified ear; R11.2 Nausea with vomiting, unspecified
CPT/HCPCS: 99283; A9270-GY